=== PATIENT | female | born 1985 | race African-American/Black ===

== ENCOUNTER 2024-09-30 21:39 | Emergency (ER) | payer BC ==
[~2024-09-30] VITALS: Ht 172.7 cm; Wt 100.0 kg
[2024-09-30 21:48] VITALS: O2SAT 99
[2024-09-30 22:02] VITALS: BP 119/64; PULSE 85; RESP 16; TEMP 37.1; O2SAT 100
[2024-09-30 22:44] LABS: BASOPHILS % 0.6 % (0.0-2.0); EOSINOPHILS % 1.3 % (0.0-5.0); HEMATOCRIT. 36.2 % (36.0-48.0); HEMOGLOBIN. 11.4 g/dL (12.0-16.0); LYMPHOCYTES % 36.4 % (20.0-50.0); MEAN CORPUSCULAR HEMOGLOBIN 28.6 pg (28.0-32.0); MEAN CORPUSCULAR HGB CONC 31.6 g/dL (31.0-37.0); MEAN CORPUSCULAR VOLUME 90.6 fL (81.0-99.0); MEAN PLATELET VOLUME 8.8 fl (7.4-10.4); MONOCYTES % 7.8 % (2.0-8.0); NEUTROPHILS % 53.9 % (40.0-76.0); PLATELET 257 x1000/uL (130-400); RED CELL DISTRIBUTION WIDTH 13.8 % (11.6-14.6); WHITE BLOOD COUNT 12.6 x1000/uL (4.5-11.0)
[2024-09-30 22:53] LABS: CHLORIDE 108 mEq/L (98-107); POTASSIUM 3.8 mEq/L (3.5-5.1); SODIUM 142 mEq/L (136-145)
[2024-09-30 22:54] LABS: CARBON DIOXIDE 27 mEq/L (21-32); PROTHROMBIN TIME 10.9 sec (9.6-11.0)
[2024-09-30 22:55] LABS: CALCIUM 9.6 mg/dL (8.7-10.4)
[2024-09-30 22:59] LABS: CREATININE 0.9 mg/dL (0.6-1.0); GLUCOSE 100 mg/dL (70-105)
[2024-09-30 23:00] LABS: UREA NITROGEN BLOOD 12 mg/dL (9-23)
[2024-09-30 23:01] LABS: ALANINE AMINOTRANSFERASE 11 IU/L (10-49); ALBUMIN 3.8 g/dL (3.2-4.8); ASPARTATE AMINOTRANSFERASE 12 IU/L (<34)
[2024-09-30 23:02] LABS: BILIRUBIN DIRECT 0.2 mg/dL (<=3.0); BILIRUBIN TOTAL 0.7 mg/dL (0.1-1.0); PROTEIN TOTAL 6.9 g/dL (6.0-8.3)
[2024-10-01 01:27] LABS: CLARITY URINE CLOUDY (CLEAR); COLOR URINE YELLOW (YELLOW); GLUCOSE URINE NEGATIVE (NEGATIVE); KETONES URINE TRACE (NEGATIVE); LEUKOCYTE ESTERASE URINE 1+ (NEGATIVE); NITRITE URINE NEGATIVE (NEGATIVE); OCCULT BLOOD URINE NEGATIVE (NEGATIVE); PROTEIN URINE TRACE (NEGATIVE); SPECIFIC GRAVITY URINE 1.036 (1.005-1.030)
[2024-10-01 01:51] LABS: UCG SCREEN NEGATIVE
[2024-10-01] MEDS ORDERED: SENN-215 MT (03:03)
[2024-10-01] MEDS ORDERED: BISA5TAB19 MT (03:05)
[2024-10-01] MEDS ORDERED: HYDR453.3 TP (03:05)
[2024-10-01 04:01] LABS: SQUAMOUS EPITHELIAL CELL URINE 1+ /lpf (RARE/1+)
[2024-10-01 04:05] LABS: BACTERIA URINE 1+
== END 2024-10-01 07:45 | disposition home or self-care (01) ==
LOC: ER 21:39
DX: K59.00 Constipation, unspecified (principal); K58.9 Irritable bowel syndrome, unspecified; Z90.49 Acquired absence of other specified parts of digestive tract
CPT/HCPCS: 36415; 74018; 74176; 80048; 80076; 81003; 81025; 85025; 99284